=== PATIENT | male | born 1955 | race Caucasian/White ===

== ENCOUNTER → 2021-01-10 08:50 | Outpatient (CLI) | payer MEDICARE, OTHER, SELFPAY ==
[2021-01-10 09:27] LABS: Basophils % 0.3 % (0.1-2.0); Eosinophils # 0.1 K/mm3 (0.0-0.4); Eosinophils % 1.1 % (0.1-12.0); Hemoglobin 16.2 g/dL (14.1-18.0); Lymphocytes # 1.7 K/mm3 (0.7-4.5); Lymphocytes % 23.9 % (10-50); Mean Corpuscular HGB Conc 33.8 g/dL (31.8-35.4); Mean Corpuscular Hemoglobin 30.8 pg (27.0-31.2); Mean Corpuscular Volume 91.1 fl (80-94); Mean Platelet Volume 8.1 fl (7.4-10.4); Monocytes # 0.5 K/mm3 (0.1-1.0); Monocytes % 7.4 % (1.7-9.3); Neutrophils # 4.7 K/mm3 (1.8-7.8); Neutrophils % 67.3 % (37.0-80.0); Platelet Count 223 K/mm3 (142-424); Red Blood Count 5.27 M/mm3 (4.60-6.20); Red Cell Distribution Width 13.6 % (11.5-17.5)
[2021-01-10 10:19] LABS: Coronavirus 19 IgG Antibody Positive (Negative); Coronavirus 19 IgM Antibody Negative (Negative)
[2021-01-10 10:21] LABS: Chloride 105 mmol/L (98-107); Potassium 4.5 mmoL/L (3.5-5.1); Sodium 140 mmol/L (136-145)
[2021-01-10 10:24] LABS: Anion Gap 11.5 mEq/L (5-15); Blood Urea Nitrogen 18 mg/dl (9-20); Carbon Dioxide 28 mmol/L (22.0-30.0); Estimated Glomerular Filt Rate 67 ml/min (>60); GFR (African American) 81 ML/MIN (>60); Glucose 140 mg/dl (74-100)
== END ==
PROVIDERS: Visit Provider Surgery
DX: Z01.818 Encounter for other preprocedural examination (principal); Z20.822 Contact with and (suspected) exposure to COVID-19; K40.90 Unilateral inguinal hernia, without obstruction or gangrene, not specified as recurrent
CPT/HCPCS: 80048; 85025; 86328

== ENCOUNTER 2021-01-12 08:59 | Day surgery (SDC) | payer BC, MEDICARE, SELFPAY ==
[2021-01-06 10:10] VITALS: BMI 33.2
[2021-01-12] VITALS (9 sets, daily range): BP systolic 133–147; BP diastolic 78–87; PULSE 65–93; RESP 15–18; TEMP 36.1–36.5; O2SAT 92–99
--- NOTE | 2021-01-12 09:50 | P.PN_ITS ---
[facility] Anesthesia Checklist - Patient Identification Patient Identification: Arm Band - Structural Data Admitted From: Home Planned Operative Procedure/s: Right Open Inguinal Hernia Repair Consent for Planned Operative Procedure(s) Verified: Yes Verified Documents: Surgical Consent, History and Physical - NPO Status Verified Time NPO: 00:00 - Additional verifications Anesthesia Reactions: No Hx Blood Transfusions: Yes (2012) Blood Transfusion Reaction: Yes (tx with bendryl) - Airway Assessment C-Spine Mobility Assessed: Yes (mp2) TMJ Mobility Assessed: Yes Dentition: Good Dentition - Neurological Assessment Level of Consciousness: Awake, Alert - Anesthesia Plan Anesthesia Risk discussed: Yes Anesthesia Plan: Verified ASA Class: III Anesthesia Type: General [facility] History I have reviewed the patient's past medical history: Yes Medical History: Reports:: Cancer (abdominal), Gastroesophageal Reflux Disease(GERD), Hypertension Denies:: Diabetes Mellitus Type 1, Diabetes Mellitus Type 2, Internal Pacemaker, MRSA, Seizures *Have you ever received a pneumonia vaccine?: No *Have you received a flu vaccine this season?: Yes Other Medical History: Reports: Blood Transfusion Reaction (tx with bendryl) Anesthesia experience/problems:: nac Laterality Cases: Bilateral: Arthroscopy Shoulder Other Surgeries: Yes: Colonoscopy, Other. No: Pacemaker Amputation: No Fractures: No - *Social History Last grade of school completed: High school graduate Smoking Status: Never smoker Alcohol Intake: never Substance Use Type: denies use *Occupational Status:: employed Housing: house Household Members: spouse, children *Travel in the last 8 weeks: None Family Hx:: Bleeding Disorder, Diabetes, Hypertension, Stroke
--- NOTE | 2021-01-12 12:44 | P.OP_ITS ---
Date of procedure: 01/12/21 Pre-op Diagnosis:: Right inguinal hernia Post-op Diagnosis:: Same Procedure performed:: Open right inguinal hernia repair with placement of extra-large Bard prefix mesh plug with onlay mesh Surgeon:: Christian Wells MD DIRECTOR GIFT:: Other Anesthesia: LMA Estimated blood loss (mL): 20 Clinical Note:: Patient is a pleasant 64-year-old male from [facility] referred by Yakov Dent for right inguinal hernia. Patient states that he has had a swelling in the right groin for about 2 or 3 years. He has developed progressive d iscomfort which is worse as he standing on his feet throughout the day. It usually not very bothersome first thing in the morning. He has to manually reduce this. Interestingly, he has had some urinary symptoms stating when he reduces it he has the urge to urinate. 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 He also is on warfarin anticoagulation therapy chronically for factor V Leiden deficiency. Patient gives a prior history of electrocution. Patient was found to have a moderate right inguinal symptomatic hernia. It is possible he has a small asymptomatic hernia on the left. However, given the previous midline laparotomy I advocated for open repair. I discussed the options with the patient. He would like to pursue repair. Plan for open right inguinal hernia repair. I discussed the nature and details of the proposed procedure along with associated risks and expected outcome. If he develops symptomatic left inguinal hernia in the future this could be addressed as an open procedure. Operative findings:: Patient had a very large widely open internal ring with a large amount of herniated fat. Operative note:: Patient was taken to the operating room. He was positioned in a supine position. General anesthesia was induced. Abdomen and perineal area were prep ped and draped in the standard surgical fashion. Oblique incision was made in the right groin superior to landmarks identifying the inguinal ligament. Dissection was carried down through subcutaneous tissues and Lennox's fascia using electrocautery. External oblique muscle was cleaned free of extraneous tissue. Extra oblique muscle was opened along the length of its fibers with care taken to protect the ilioinguinal nerve. There was a large amount of herniated fat. Very prolonged dissection was carried out in attempt to dissect the herniated fatty tissues/omentum from the cord structures. Ultimately these herniated fatty tissues were able to be dissected free from the cord and reduced with some difficulty. He had a widely open patent internal ring which allowed for the herniation. An extra-large Bard prefix mesh plug was inserted into this region and secured to the transversalis muscle and shelving edge of the inguinal ligament with combination of 2-0 Vicryl and 2-0 PDS. Onlay mesh was then secured to Andrew's ligament and along the shelving edge of the inguinal ligament with a running 2-0 PDS. It was secured to the transversalis muscle fascia superomedially. The 2 leaves of the mesh were secured to 1 another to reconstruct the internal ring. Repair appeared adequate and intact. There appeared to be good hemostasis. Local anesthetic was infiltrated. Cord struc tures and nerve were returned to the normal anatomic position. External oblique muscle was closed with a running 2-0 Vicryl. Lennox's fascia was closed with running 2-0 Vicryl. Skin was closed with 4-0 Monocryl in a running subcuticular fashion. Steri-Strips and dressings were applied. Condition: stable Disposition: PACU Complications:: None immediately apparent
--- NOTE | 2021-01-12 13:03 | P.PN_ITS ---
[facility] Anesthesia Record Part I Intake, IV Amount: 2,400 Estimated blood loss (mL): 10 Urine output (mL): 500 Blood Products used (#): none Blood Pressure: 141/78 SaO2: 94 Pulse Rate: 93 Respiratory Rate: 18 Temperature: 97 F Patient is:: Awake, Drowsy Stable to PACU at:: 12:54
[2021-01-12 13:05] LABS: Microscopic,Cath URINE MICROSCOPIC (MICROSCOPIC)
[2021-01-12 13:50] LABS: Appearance,Urine/Cath CLEAR (Clear); Bilirubin,Cath Negative (Negative); Blood, Urine/Cath 1+ (Negative); Color,Urine/Cath YELLOW (Yellow); Glucose,Urine/Cath (UA) Negative (Negative); Ketones,Urine/Cath Negative (Negative); Leukocyte Esterase,Cath Negative (Negative); Nitrate,Cath Negative (Negative); PH,Urine/Cath 6.5 (5.0-8.5); Protein,Urine/Cath Negative (Negative); Specific Gravity, Urine/Cath 1.025 (1.005-1.030); Urobilinogen,Cath 0.2 EU/dl (0.2)
--- NOTE | 2021-01-13 10:55 | P.PN_ITS ---
[facility] Anesthesia Record Part II Discharge Time: 13:30 Destination: Surgical Day Care (OP Surgery) PACU nurse assessment reviewed?: Yes Patient Condition:: Good Anesthesia Complications:: None Swallowing reflex intact?: Yes Cyanosis?: No Blood Pressure: 147/87 Pulse Rate: 79 Temperature: 97.3 F Mental Status: Alert & Oriented Pain level:: 0 Nausea and/or vomitting:: None Intake, IV Amount: 0
[2021-01-13 10:56] VITALS: BP 147/87; PULSE 79; TEMP 36.3
== END 2021-01-12 14:20 | disposition home or self-care (01) ==
LOC: OR 09:01
PROVIDERS: PCP Family Medicine; Visit Provider Surgery
PROC: (CPT 49505; principal; 2021-01-12 10:30)
DX: K40.90 Unilateral inguinal hernia, without obstruction or gangrene, not specified as recurrent (principal); Z85.89 Personal history of malignant neoplasm of other organs and systems; Z79.01 Long term (current) use of anticoagulants; Z79.899 Other long term (current) drug therapy; I10 Essential (primary) hypertension; K21.9 Gastro-esophageal reflux disease without esophagitis; Z87.39 Personal history of other diseases of the musculoskeletal system and connective tissue; Z82.3 Family history of stroke; Z82.49 Family history of ischemic heart disease and other diseases of the circulatory system; Z83.3 Family history of diabetes mellitus; Z88.0 Allergy status to penicillin
CPT/HCPCS: 49505; 81001; 96374; J2405

== ENCOUNTER 2022-05-28 11:44 | Emergency (ER) | payer MEDICARE, OTHER, SELFPAY ==
[2022-05-28 12:11] VITALS: BP 135/74; PULSE 62; RESP 16; TEMP 36.8; O2SAT 98; BMI 32.5
[2022-05-28 12:18] VITALS: BP 135/74; PULSE 62; RESP 16; TEMP 36.6; O2SAT 98; BMI 32.3
--- NOTE | 2022-05-28 12:41 | HMH.EDUTC ---
[facility] [place] Disposition Clinical Impression: Need for Tdap vaccination Laceration of right middle finger Qualifiers: Encounter type: initial encounter Damage to nail status: without damage Foreign body presence: without foreign body Qualified Code(s): S61.212A - Laceration without foreign body of right middle finger without damage to nail, initial encounter Disposition: Home, Self-Care Condition on Discharge: Good Instructions: How to Care for a Laceration After Repair, DI for Laceration Repair -- Simple, Tetanus, Diphtheria, Pertussis (Tdap) Vaccine Additional Instructions: Keep the wound clean and dry. Keep a dressing on it if you are going to be getting it dirty. Watch the for signs of infection, such as redness, swelling, drainage, fever. etc. Take tylenol or ibuprofen for pain. Follow up with your regular doctor. Return in 10 days to have the sutures removed. GO TO THE ER FOR ANY WORSENING SYMPTOMS OR CONCERNS. Prescriptions: cephALEXin [cephALEXin 500mg capsule] 500 mg PO Q6H 10 Days #40 cap Transmission Status: Received by [facility] Referrals: Yakov Dent MD [Primary Care Provider] - Time of Disposition: 13:37 Medical Decision Making - Medical Records Medical records reviewed: No: I reviewed the patient's medical records. - Alex Inquiry Pt receiving controlled substance: No Vital Signs: 05/28/22 12:11 05/28/22 12:18 05/28/22 13:39 Temperature 98.2 F 98 F 98 F Temperature Source Oral Oral Oral Pulse Rate 60 Pulse Rate [Radial] 62 62 Respiratory Rate 16 16 16 Blood Pressure 130/70 Blood Pressure [Right Arm] 135/74 135/74 Blood Pressure Mean [Right Arm] 94 94 Blood Pressure Source Automatic Cuff Blood Pressure Source [Right Arm] Automatic Cuff Blood Pressure Position Sitting Blood Pressure Position [Right Arm] Sitting Sitting 02 Sat by Pulse Oximetry 98 98 Oxygen Delivery Method Room Air Room Air Room Air Orders (Tests/Meds): ED MEDICATIONS Discontinued Medications Generic Name Dose Route Start Last Admin Trade Name Freq PRN Reason Stop Dose Admin Tetanus/Reduced Diphtheria/Acell Pertussis 0.5 ml 05/28/22 12:41 05/28/22 12:45 Tet/Diphth/Pert-Adult 0.5ml Syringe IM 05/28/22 12:42 0.5 ml .ONCE ONE Administration [facility] [place] HPI - General Stated complaint: AO 7/17 finger lac Time Seen by Provider: 05/28/22 12:42 Mode of Arrival: Ambulatory Source of Information: Patient Limitations: No Limitations Description of Symptoms (Recalled from Triage Doc. by RN): pt c/o laceration to rt middle finger on piece of metal today. HEENT Symptoms (Recalled from RN notes): No Resp Symptoms (Recalled from RN notes): No Skin Symptoms (Recalled from RN notes): Yes (laceration to finger) MS Symptoms (Recalled from RN notes): No Functional Status (Recalled from RN notes): na - History of Present Illness Provider Complaint: He was carrying a broken light fixture to the garbage when the cord attached to it caught on something and it caused the glass to be jerked back into his right hand. He has a laceration on the medial aspect of his right middle finger. His tetanus immunization is not up to date. He denies any other injury. He is able to bend and straighten his finger well - Related Data Home Medications Medication Instructions Recorded Confirmed cholecalciferol (vitamin D3) 100 100 mcg PO DAILY 12/13/20 03/28/21 mcg (4,000 unit) capsule gabapentin 300 mg capsule 300 mg PO BID cap 12/13/20 03/28/21 irbesartan 150 1 tab PO DAILY tab 12/13/20 03/28/21 mg-hydrochlorothiazide 12.5 mg tablet meloxicam 15 mg tablet 15 mg PO DAILY tab 12/13/20 03/28/21 omeprazole 40 mg capsule,delayed 40 mg PO DAILY cap 12/13/20 03/28/21 release tramadol 50 mg tablet 50 mg PO DAILY PRN 12/13/20 03/28/21 trazodone 50 mg tablet 100 mg PO DAILY tab 12/13/20 03/28/21 warfarin 10 mg tablet 10 mg PO WEEKLY tab 12/13/20 03/28/21 warfarin 5 mg tablet 15 m
[2022-05-28 13:39] VITALS: BP 130/70; PULSE 60; RESP 16; TEMP 36.6; O2SAT 98
== END 2022-05-28 13:40 | disposition home or self-care (01) ==
PROVIDERS: Emergency Provider Nurse Practitioner Family; PCP Family Medicine
DX: S61.212A Laceration without foreign body of right middle finger without damage to nail, initial encounter (principal); Z23 Encounter for immunization
CPT/HCPCS: 12001; 90471; 90715; 99213; G0463